=== PATIENT | female | born 2000 | race Caucasian/White ===

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

== ENCOUNTER → 2019-06-01 | Outpatient (CLI) | payer BC ==
[~2019-06-01] MED LIST changes: +Keflex500 MG PO; +Pyridium200 MG PO
== END | disposition home or self-care (01) ==
LOC: LAB 06:34 → LAB SHORT 06:34 → LAB FUT 05-30 13:35
DX: I10 Essential (primary) hypertension (principal); R00.2 Palpitations; Z82.79 Family history of other congenital malformations, deformations and chromosomal abnormalities
CPT/HCPCS: 81050

== ENCOUNTER → 2019-08-08 | Outpatient (CLI) | payer BC ==
[2019-08-09 07:52] LABS: Candida species (DNA Probe) Negative (NEGATIVE); G. vaginalis (DNA Probe) Negative (NEGATIVE); T. vaginalis (DNA Probe) Negative (NEGATIVE)
== END | disposition home or self-care (01) ==
LOC: LAB 12:43 → LAB SHORT 12:43
PROVIDERS: Internal Medicine
DX: N76.0 Acute vaginitis (principal)
CPT/HCPCS: 87070; 87205; 87480; 87510; 87660